=== PATIENT | female | born 1965 | race Caucasian/White ===

== ENCOUNTER 2019-03-20 08:18 | Day surgery (SDC) | payer BC ==
[~2019-03-20 08:18] MED LIST: Midazolam 1 MG/ML 2 ML SDV ONE; Propofol 200 MG/20 ML SDV ONE; Sodium Chloride 0.9% 1,000 ML IV SCH; fentaNYL 100 MCG/2 ML SDV ONE
--- NOTE | 2019-03-21 08:21 | OR ---
DATE OF PROCEDURE: 03/20/2019 PROCEDURE: Colonoscopy. FINDINGS: 1. Diverticulosis, mild. 2. Significant tortuous colon, sigmoid. PREOPERATIVE DIAGNOSIS: Family history of colorectal cancer. POSTOPERATIVE DIAGNOSIS: Family history of colorectal cancer. SURGEON: Efrem Peace MD RISKS: Risks, benefits, alternatives, and limitations including, but not limited to infection, bleeding, and perforation were explained to the patient, who wished to proceed. PROCEDURE IN DETAIL: The patient was placed in left lateral decubitus position. Digital rectal exam was performed which showed mild external hemorrhoids. The scope was introduced and advanced through the significantly tortuous sigmoid colon. At no point was the scope blindly advanced nor undue pressure placed. Diverticulosis was described as mild and limited to the sigmoid colon. The scope was continued onto the ileocecal valve, of which a photo was taken. The scope was brought back through the ascending, transverse, descending colon, and retroflexed. No masses. No polyps. No old or new blood. No areas of concern. No evidence of diverticulitis. The patient tolerated the procedure well. Efrem Peace MD /[id number]
== END 2019-03-20 11:08 | disposition home or self-care (01) ==
LOC: JP.SDS 08:18
PROVIDERS: ATTEND Surgery
DX: Z12.11 Encounter for screening for malignant neoplasm of colon (principal); K57.30 Diverticulosis of large intestine without perforation or abscess without bleeding; K64.4 Residual hemorrhoidal skin tags; E03.9 Hypothyroidism, unspecified; E66.9 Obesity, unspecified; Z88.2 Allergy status to sulfonamides; Z80.0 Family history of malignant neoplasm of digestive organs; Z88.1 Allergy status to other antibiotic agents; Z88.8 Allergy status to other drugs, medicaments and biological substances
CPT/HCPCS: 45378; J2250; J2704; J3010; J7030

== ENCOUNTER 2019-08-13 23:43 | Emergency (ER) | payer BC ==
--- NOTE | 2019-08-14 00:41 | EDM.PDOC ---
ED HPI GENERAL MEDICAL PROBLEM - General Chief Complaint: Abdominal Pain Stated Complaint: LEFT SIDE ABD PAIN Time Seen by Provider: 08/14/19 00:34 Source of Information: Reports: Patient History Limitations: Reports: No Limitations - History of Present Illness INITIAL COMMENTS - FREE TEXT/NARRATIVE: pt was seen earlier at the clinic with left lower abdomanal pain. She had a wbc of 10,000 ast the clinic and she had a neg urine. A cat scan of the abdoman was ordered whih did show diverticulitis. She did have colonoscopy which showed diverticulosis in the past. Onset: Gradual, Other (pain has gotten much worse ihe past few hours. ) Duration: Hour(s): Location: Reports: Abdomen Associated Symptoms: Reports: Other ( fever of 100) Left Lower Abdominal Pain Score (Numeric/FACES): 6 - Related Data Allergies Allergy/AdvReac Type Severity Reaction Status Date / Time clavulanic acid Allergy Hives Verified 08/14/19 00:13 [From Augmentin] Sulfa (Sulfonamide Allergy Hives Verified 08/14/19 00:13 Antibiotics) pravastatin AdvReac Muscle Verified 08/14/19 00:13 Aches simvastatin AdvReac Muscle Verified 08/14/19 00:13 Aches Home Meds: Home Meds Calcium Carbonate [Calcium] 500 mg PO DAILY 03/18/19 [History] Levothyroxine [Synthroid] 88 mcg PO ACBREAKFAST 03/18/19 [History] Past Medical History HEENT History: Reports: Impaired Vision Cardiovascular History: Reports: High Cholesterol Gastrointestinal History: Reports: Diverticulosis, Irritable Bowel Syndrome Genitourinary History: Reports: UTI, 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: Musculoskeletal History: Reports: Fracture, Other (See Below) Other Musculoskeletal History: right hip bone spurs, labrium tear, Endocrine/Metabolic History: Reports: Hypothyroidism Hematologic History: Reports: Anemia - Infectious Disease History Infectious Disease History: Reports: Chicken Pox, Mumps - Past Surgical History Cardiovascular Surgical History: Reports: None GI Surgical History: Reports: Colonoscopy Female Surgical History: Reports: Hysterectomy, Salpingo-Oophorectomy Endocrine Surgical History: Reports: None Social & Family History - Family History Family Medical History: Noncontributory - Tobacco Use Smoking Status *Q: Never Smoker - Caffeine Use Caffeine Use: Reports: Coffee - Recreational Drug Use Recreational Drug Use: No ED ROS GENERAL - Review of Systems Review Of Systems: See Below Constitutional: Reports: Fever, Decreased Appetite HEENT: Reports: No Symptoms Respiratory: Reports: No Symptoms Cardiovascular: Reports: No Symptoms Endocrine: Reports: No Symptoms GI/Abdominal: Reports: Abdominal Pain, Other (pt is having left lower abdomanal pain. ) : Reports: No Symptoms Musculoskeletal: Reports: No Symptoms Skin: Reports: No Symptoms ED EXAM, GI/ABD - Physical Exam Exam: See Below Text/Narrative:: pt arrived ith increased abdomanal pain. She has not had a bm since sunday. She did have a cat scan of the abdoman which showed diverticulitis. She has not been vomiting. Exam Limited By: No Limitations General Appearance: Alert, Anxious, Moderate Distress Ears: Normal TMs Nose: Normal Inspection Throat/Mouth: Normal Inspection Head: Atraumatic Neck: Normal Inspection Respiratory/Chest: No Respiratory Distress Cardiovascular: Regular Rate, Rhythm GI/Abdominal Exam: Tender, Other ( Pt has sig left lower abdomanal pain) (Female) Exam: Deferred Rectal (Female) Exam: Deferred Back Exam: Normal Inspection Extremities: Normal Inspection Neurological: Alert, Oriented, Normal Cognition Psychiatric: Normal Affect Course - Vital Signs Last Recorded V/S: Last Vital Signs Temp 36.4 C 08/14/19 00:18 Pulse 88 08/14/19 01:28 Resp 15 08/14/19 01:28 BP 116/72 08/14/19 01:28 Pulse Ox 95 08/14/19 01:28 - Orders/Labs/Meds Labs: Laboratory Tests 08/14/19 08/14/19 Range/Units 00:41 00:41 WBC 12.4 H (4.5-11.0) K/uL RBC 4.28 (3.30-5.50) M/uL Hgb 13.1 (12.0-15.0) g/dL Hct 39.3 (36.0-48.0) % MCV 92 (80-98) fL MCH 31 (27-31) pg MCHC 33 (32-36) % Plt Count 235 (150-400) K/uL Neut % (Auto) 77 H (36-66) % Lymph % (Auto) 13 L (24-44) % Stark % (Auto) 8 H (2-6) % Eos % (Auto) 2 (2-4) % Baso % (Auto) 0 (0-1) % Sodium 137 L (140-148) mmol/L Potassium 4.1 (3.6-5.2) mmol/L Chloride 103 (100-108) mmol/L Carbon Dioxide 24 (21-32) mmol/L Anion Gap 14.1 H (5.0-14.0) mmol/L BUN 16 (7-18) mg/dL Creatinine 0.8 (0.6-1.0) mg/dL Est Cr Clr Drug Dosing 67.80 mL/min Estimated GFR (MDRD) > 60 (>60) Glucose 114 H (74-106) mg/dL Calcium 8.7 (8.5-10.1) mg/dL Total Bilirubin 0.5 (0.2-1.0) mg/dL AST 11 L (15-37) U/L ALT 25 (12-78) U/L Alkaline Phosphatase 85 (46-116) U/L Total Protein 7.2 (6.4-8.2) g/dL Albumin 3.6 (3.4-5.0) g/dL Globulin 3.6 H (2.3-3.5) g/dL Albumin/Globulin Ratio 1.0 L (1.2-2.2) Meds: Medications Discontinued Medications Generic Name Dose Route Start Last Admin Trade Name Machoq PRN Reason Stop Dose Admin Hydromorphone HCl 0.5 mg 08/14/19 00:44 08/14/19 01:05 Dilaudid IVPUSH 08/14/19 00:45 0.5 mg ONETIME ONE Administration Sodium Chloride 1,000 mls @ 999 mls/hr 08/14/19 00:45 08/14/19 01:05 Normal Saline IV 999 mls/hr ASDIRECTED DAJA Administration Metronidazole 500 mg/ Premix 100 mls @ 100 mls/hr 08/14/19 00:44 08/14/19 01: 22 IV 08/14/19 01:43 100 mls/hr ONETIME ONE Administration Levofloxacin/Dextrose 750 mg/ 150 mls @ 100 mls/hr 08/14/19 00:45 08/14/19 01 :19 Premix IV 08/14/19 02:14 100 mls/hr ONETIME ONE Administration Ondansetron HCl 4 mg 08/14/19 00:43 08/14/19 01:05 Zofran IVPUSH 08/14/19 00:44 4 mg ONETIME ONE Administration - Re-Assessments/Exams Free Text/Narrative Re-Assessment/Exam: 08/14/19 00:48 pt had a cat scan which showed left sided diverticulits --sigmoid. Departure - Departure Time of Disposition: 02:55 Disposition: Home, Self-Care 01 Condition: Fair Clinical Impression: Sigmoid diverticulitis - Discharge Information Instructions: Diverticulitis, Low-Fiber Eating Plan Referrals: Dustin Osorio MD [Primary Care Provider] - Forms: ED Department Discharge Care Plan Goals: cipro 500mg bid, flagyl 500mg tid, push fluids, low fiber diet, if pain should get alot worse then return appt with Dr Figueredo Sunday.
[2019-08-14] MEDS ORDERED: Ondansetron 4 MG/2 ML SDV IVPUSH ONE (00:43)
[2019-08-14] MEDS ORDERED: HYDROmorphone 0.5 MG/0.5 ML Syringe IVPUSH ONE (00:44)
[2019-08-14] MEDS ORDERED: metroNIDAZOLE/Normal Saline 500 MG in Premix Bag 1 BAG IV ONE (00:44)
[2019-08-14] MEDS ORDERED: Sodium Chloride 0.9% 1,000 ML IV SCH (00:45)
[2019-08-14] MEDS ORDERED: Levofloxacin/Dextrose 5%-Water 750 MG in Premix Bag 1 BAG IV ONE (00:45)
== END 2019-08-14 03:01 | disposition home or self-care (01) ==
LOC: JP.ED 23:43
DX: K57.32 Diverticulitis of large intestine without perforation or abscess without bleeding (principal); E03.9 Hypothyroidism, unspecified; Z88.2 Allergy status to sulfonamides; Z88.8 Allergy status to other drugs, medicaments and biological substances; Z79.899 Other long term (current) drug therapy; Z90.710 Acquired absence of both cervix and uterus; R10.32 Left lower quadrant pain; K57.30 Diverticulosis of large intestine without perforation or abscess without bleeding
CPT/HCPCS: 36415; 74177; 80053; 85025; 96365; 96368; 96375; 99284; J1170; J1956; J2405; J3490; J7030; Q9967

== ENCOUNTER 2020-08-19 08:16 | Day surgery (SDC) | payer BC ==
[2020-08-19] MEDS ORDERED: Sodium Chloride 0.9% 1,000 ML IV SCH (08:45)
[2020-08-19] MEDS ORDERED: fentaNYL 100 MCG/2 ML SDV ONE (09:36)
[2020-08-19] MEDS ORDERED: Midazolam 1 MG/ML 2 ML SDV ONE (09:36)
[2020-08-19] MEDS ORDERED: Propofol 200 MG/20 ML SDV ONE (09:36)
--- NOTE | 2020-08-19 11:54 | OR ---
DATE OF PROCEDURE: 08/19/2020 SURGEON: Efrem Peace MD PROCEDURE: Esophagogastroduodenoscopy. FINDINGS: 1. Gastric polyp, completely removed using cold biopsy forceps. 2. Inflammation at GE junction consistent with gastroesophageal reflux disease (biopsied using cold biopsy forceps). COMPLICATIONS: None. 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 PREOPERATIVE DIAGNOSIS: Epigastric pain. POSTOPERATIVE DIAGNOSIS: Epigastric pain. RISKS: Risks, benefits, alternatives, and limitations including, but not limited to infection, bleeding, and perforation were explained to the patient, who wished to proceed. PROCEDURE IN DETAIL: The patient was placed in left lateral decubitus position. The EGD scope was introduced and advanced atraumatically to the second part of the duodenum. No evidence of duodenitis or ulceration was noted. Within the stomach itself, there were a few small gastric polyps, mostly consistent with fundic polyps. Nonetheless, these were biopsied using cold biopsy forceps/one was completely removed. On retroflexion, no gastritis. No hiatal hernia. GE junction showed mild inflammation concerning for reflux disease. This was biopsied in all 4 quadrants. The remaining esophagus was normal. The patient tolerated the procedure well. Efrem Peace MD /[id number]
== END 2020-08-19 11:10 | disposition home or self-care (01) ==
LOC: JP.SDS 08:16
PROVIDERS: ATTEND Surgery
DX: K31.7 Polyp of stomach and duodenum (principal); K29.70 Gastritis, unspecified, without bleeding; K20.9 Esophagitis, unspecified; E03.9 Hypothyroidism, unspecified
CPT/HCPCS: 43239; J2250; J2704; J3010; J7030; 88305

== ENCOUNTER 2022-07-21 18:40 | Inpatient (IN) | payer BC ==
[2022-07-21] MEDS ORDERED: HYDROmorphone 0.5 MG/0.5 ML Syringe IVPUSH ONE ×3 (19:25→21:21)
[2022-07-21] MEDS ORDERED: Ondansetron 4 MG/2 ML SDV IVPUSH ONE (19:31)
[2022-07-21] MEDS: Sodium Chloride 0.9% 1,000 ML IV ONE ×2 (19:32→20:44)
[2022-07-21] MEDS ORDERED: Levofloxacin/Dextrose 5%-Water 750 MG in Premix Bag 1 BAG IV ONE ×2 (20:28→23:00)
[2022-07-21] MEDS ORDERED: metroNIDAZOLE/Normal Saline 500 MG in Premix Bag 1 BAG IV ONE (20:29)
[2022-07-21] MEDS ORDERED: Prochlorperazine 10 MG/2 ML SDV IVPUSH ONE (20:35)
[2022-07-21] MEDS ORDERED: Sodium Chloride 0.9% 1,000 ML IV SCH ×2 (20:45→22:30)
[2022-07-21] MEDS ORDERED: Ondansetron 4 MG/2 ML SDV IV PRN (22:30)
[2022-07-21] MEDS ORDERED: Prochlorperazine 5 MG in Sodium Chloride 0.9% 50 ML IV PRN (22:35)
[2022-07-22] MEDS: metroNIDAZOLE/Normal Saline 500 MG in Premix Bag 1 BAG IV SCH ×4 (00:17→22:18)
[2022-07-22] MEDS: HYDROmorphone 0.5 MG/0.5 ML Syringe IVPUSH PRN ×2 (02:03→07:13)
[2022-07-22] MEDS: Levothyroxine 88 MCG Tab PO SCH (08:57)
[2022-07-22] MEDS ORDERED: Ketorolac 30 MG/ML SDV IVPUSH ONE (10:25)
[2022-07-22] MEDS: Pantoprazole 40 MG Vial IVPUSH SCH (12:22)
[2022-07-22] MEDS: Sodium Chloride 0.9% 1,000 ML IV SCH ×2 (16:53→22:18)
[2022-07-22] MEDS: Tamsulosin 0.4 MG Cap.ER PO SCH (22:19)
[2022-07-23] MEDS: Levothyroxine 88 MCG Tab PO SCH (07:43)
[2022-07-23] MEDS: metroNIDAZOLE/Normal Saline 500 MG in Premix Bag 1 BAG IV SCH ×3 (07:44→22:00)
[2022-07-23] MEDS: Levothyroxine 25 MCG Tab PO SCH (07:53)
[2022-07-23] MEDS: Levothyroxine 50 MCG Tab PO SCH (07:54)
[2022-07-23] MEDS: Pantoprazole 40 MG Vial IVPUSH SCH (11:52)
[2022-07-23] MEDS: Levofloxacin/Dextrose 5%-Water 500 MG in Premix Bag 1 BAG IV SCH (12:48)
[2022-07-23] MEDS: Acetaminophen 325 MG Tab PO PRN ×3 (14:47→23:52)
[2022-07-23] MEDS: Lactobacillus Rhamnosus GG (Probiotic) Cap PO SCH ×2 (14:47→21:50)
[2022-07-23] MEDS ORDERED: Ketorolac 30 MG/ML SDV IVPUSH ONE (15:41)
[2022-07-23] MEDS: Sodium Chloride 0.9% 1,000 ML IV SCH (18:42)
[2022-07-23] MEDS ORDERED: Levofloxacin/Dextrose 5%-Water 750 MG in Premix Bag 1 BAG IV SCH (20:00)
[2022-07-23] MEDS: Tamsulosin 0.4 MG Cap.ER PO SCH (21:50)
[2022-07-24] MEDS: metroNIDAZOLE/Normal Saline 500 MG in Premix Bag 1 BAG IV SCH ×3 (07:17→22:00)
[2022-07-24] MEDS: Levothyroxine 50 MCG Tab PO SCH (07:18)
[2022-07-24] MEDS: Levothyroxine 25 MCG Tab PO SCH (07:18)
[2022-07-24] MEDS: Lactobacillus Rhamnosus GG (Probiotic) Cap PO SCH ×2 (09:58→21:59)
[2022-07-24] MEDS: Pantoprazole 40 MG Vial IVPUSH SCH (11:05)
[2022-07-24] MEDS: Levofloxacin/Dextrose 5%-Water 500 MG in Premix Bag 1 BAG IV SCH (11:05)
[2022-07-24] MEDS: Sodium Chloride 0.9% 1,000 ML IV SCH (17:14)
[2022-07-24] MEDS: Tamsulosin 0.4 MG Cap.ER PO SCH (21:59)
[2022-07-25] MEDS: Acetaminophen 325 MG Tab PO PRN (03:29)
[2022-07-25] MEDS: Levothyroxine 25 MCG Tab PO SCH ×2 (07:25→08:11)
[2022-07-25] MEDS: Levothyroxine 50 MCG Tab PO SCH ×2 (07:25→08:11)
[2022-07-25] MEDS: metroNIDAZOLE/Normal Saline 500 MG in Premix Bag 1 BAG IV SCH (07:25)
[2022-07-25] MEDS ORDERED: SYNTHROID 75 MCG PO SCH (08:00)
[2022-07-25] MEDS: Lactobacillus Rhamnosus GG (Probiotic) Cap PO SCH (08:58)
[2022-07-25] MEDS: Pantoprazole 40 MG Tab.CR PO SCH ×2 (11:09→12:50)
[2022-07-25] MEDS: Levofloxacin/Dextrose 5%-Water 500 MG in Premix Bag 1 BAG IV SCH (11:09)
== END 2022-07-25 13:40 | disposition home or self-care (01) | DRG 463 ==
LOC: JP.ED 18:40 → JP.MS 23:17
PROVIDERS: ADMIT Family Medicine; ATTEND Hospitalist
DX: N13.6 Pyonephrosis (principal); E03.9 Hypothyroidism, unspecified; Z20.822 Contact with and (suspected) exposure to COVID-19; K21.9 Gastro-esophageal reflux disease without esophagitis; D64.9 Anemia, unspecified; E78.00 Pure hypercholesterolemia, unspecified; K57.32 Diverticulitis of large intestine without perforation or abscess without bleeding; Z79.890 Hormone replacement therapy; Z79.899 Other long term (current) drug therapy; Z90.710 Acquired absence of both cervix and uterus; Z88.2 Allergy status to sulfonamides; Z88.8 Allergy status to other drugs, medicaments and biological substances; Z87.19 Personal history of other diseases of the digestive system; Z90.722 Acquired absence of ovaries, bilateral; Z97.3 Presence of spectacles and contact lenses
CPT/HCPCS: 36415; 74176; 80048; 81001; 85027; 86140; 87086; 96365; 96367; 96375; 96376; 99232; 99239; 99285-25; A9270-GY; C9113; J0780; J1170; J1885; J1956; J2405; J3490; J7030; U0002

== ENCOUNTER 2023-07-08 11:43 | Emergency (ER) | payer BC ==
[2023-07-08] MEDS ORDERED: Sodium Chloride 0.9% 1,000 ML IV ONE (12:52)
[2023-07-08] MEDS ORDERED: Ondansetron 4 MG/2 ML SDV IVPUSH ONE (12:52)
[2023-07-08] MEDS ORDERED: Sodium Chloride 0.9% 10 ML Syringe FLUSH PRN (12:52)
[2023-07-08 13:01] LABS: BASOPHILS ABSOLUTE AUTO 0.03 K/uL (0.00-0.10); BASOPHILS PERCENT AUTO 0.3 % (0.1-1.3); EOSINOPHILS ABSOLUTE AUTO 0.05 K/uL (0.00-0.40); EOSINOPHILS PERCENT AUTO 0.4 % (0.0-5.4); HEMOGLOBIN 13.4 g/dL (11.2-15.5); IMMATURE GRAN ABSOLUTE AUTO 0.04 K/uL (0.00-0.23); IMMATURE GRAN PERCENT AUTO 0.3 % (0.0-0.7); LYMPHOCYTES ABSOLUTE AUTO 1.45 K/uL (0.8-3.3); LYMPHOCYTES PERCENT AUTO 12.7 % (11.4-47.7); MEAN CORPUSCULAR HEMOGLOBIN 30.9 pg (31.6-35.5); MEAN CORPUSCULAR HGB CONC 34.4 g/dL (31.6-35.5); MEAN CORPUSCULAR VOLUME 90.1 fL (81.4-99.0); MONOCYTES ABSOLUTE AUTO 0.78 K/uL (0.20-0.90); MONOCYTES PERCENT AUTO 6.8 % (3.3-12.6); NEUTROPHILS PERCENT AUTO 79.5 % (40.0-78.1); PLATELET COUNT,PLT 204 K/uL (130-375); RED BLOOD CELL COUNT 4.33 M/uL (3.77-5.24); WHITE BLOOD CELL COUNT,WBC 11.5 K/uL (3.2-11.0)
[2023-07-08 13:19] LABS: ANION GAP 11.1 mmol/L (5.0-14.0); C-REACTIVE PROTEIN 5.35 mg/dL (0.0-0.3); CALCIUM 8.9 mg/dL (8.5-10.1); CREATININE 0.8 mg/dL (0.6-1.0); EST CRCL DRUG DOSING (CG) 64.58 mL/min; POTASSIUM,K 4.1 mmol/L (3.6-5.2)
[2023-07-08] MEDS ORDERED: Sodium Chloride 0.9% 50 ML IV SCH (13:30)
[2023-07-08] MEDS ORDERED: Iopamidol 612 MG/ML 100 ML Bottle IV SCH (13:30)
== END 2023-07-08 15:09 | disposition home or self-care (01) ==
LOC: JP.ED 11:43
DX: K57.92 Diverticulitis of intestine, part unspecified, without perforation or abscess without bleeding (principal); Z88.2 Allergy status to sulfonamides; Z88.8 Allergy status to other drugs, medicaments and biological substances
CPT/HCPCS: 36415; 74177; 80048; 83605; 85025; 86140; 96361; 96374; 99284; J2405; J3490; J7030; Q9967

== ENCOUNTER 2023-10-29 10:45 | Emergency (ER) | payer BC | END 2023-10-29 17:12 | disposition home or self-care (01) | LOC: JP.ED 10:45 | DX: I82.451 Acute embolism and thrombosis of right peroneal vein (principal); E78.00 Pure hypercholesterolemia, unspecified; E03.9 Hypothyroidism, unspecified; Z90.710 Acquired absence of both cervix and uterus; Z79.82 Long term (current) use of aspirin; Z79.899 Other long term (current) drug therapy; Z88.2 Allergy status to sulfonamides; Z88.8 Allergy status to other drugs, medicaments and biological substances; Z88.1 Allergy status to other antibiotic agents | CPT/HCPCS: 76881-26-RT; 76881-RT; 93971-26; 93971-RT; 99283; 99284 ==